=== PATIENT | male | born 1970 | race Hispanic/Latino ===

== ENCOUNTER 2016-08-24 03:57 | Emergency (ER) | payer BC ==
[2016-08-24 07:31] LABS: HEMATOCRIT 44.9 % (42.0-52.0); MEAN CELL VOLUME 91.4 fL (80.0-105.0); MEAN CORPUSCULAR HGB CONC 33.9 g/dl (31.0-37.0); MEAN PLATELET VOLUME 10.3 fl (7.0-11.0); RED CELL DISTRIBUTION WIDTH 13.3 % (11.5-14.5)
[2016-08-24 07:57] LABS: ALB/GLOB RATIO 1.3 (1.1-1.8); ALKALINE PHOSPHATASE 41 U/L (38-133); ALT/SGPT 37 U/L (7-56); AST/SGOT 27 U/L (15-59); BILIRUBIN,TOTAL 0.3 mg/dL (0.2-1.3); BLOOD UREA NITROGEN 8 mg/dL (7-21); CALCIUM 8.9 mg/dL (8.4-10.5); CARBON DIOXIDE 24 mmol/L (21-33); CHLORIDE 104 mmol/L (95-110); GFR AFRICAN-AMERICAN > 60; GLUCOSE,RANDOM 128 mg/dL (70-110); POTASSIUM 4.2 mmol/L (3.6-5.0); SODIUM 140 mmol/L (132-148); TOTAL PROTEIN 6.7 g/dL (5.8-8.3)
[2016-08-24 08:01] LABS: PH,URINE 6.5 (4.7-8.0); URINE BILIRUBIN NEGATIVE (NEGATIVE); URINE BLOOD NEGATIVE (NEGATIVE); URINE GLUCOSE (UA) NEGATIVE (NEGATIVE); URINE KETONE NEGATIVE (NEGATIVE); URINE LEUKOCYTE ESTERASE NEGATIVE Leu/uL (NEGATIVE); URINE PROTEIN NEGATIVE mg/dL (<30 mg/dL); URINE UROBILINOGEN 0.2 E.U./dL (<1 E.U./dL)
[2016-08-24 08:03] LABS: URINE APPEARANCE CLEAR (CLEAR); URINE COLOR YELLOW (YELLOW)
[2016-08-24 08:15] VITALS: BMI 31.6
--- NOTE | 2016-08-24 09:30 | RAD ---
HISTORY: Not provided COMPARISON: 11/26/2014 FINDINGS: LUNGS: No active pulmonary disease. PLEURA: No significant pleural effusion identified, no pneumothorax apparent. CARDIOVASCULAR: Normal. OSSEOUS STRUCTURES: No significant abnormalities. VISUALIZED UPPER ABDOMEN: Normal. OTHER FINDINGS: None. IMPRESSION: No active disease.
--- NOTE | 2016-08-24 11:16 | CARD ---
APPROVED REPORT EKG Measurement Heart [id number] SC [id number] <Conclusion> Normal sinus rhythm Normal ECG
[2016-08-24 20:32] VITALS: RESP 18
[2016-08-24 23:32] VITALS: BP 143/97; PULSE 89; O2SAT 100
[2016-08-24 23:33] VITALS: TEMP 98.4
== END 2016-08-25 | disposition short-term general hospital (02) ==
LOC: ED 03:57
DX: Z00.8 Encounter for other general examination (principal)
CPT/HCPCS: 71010; 80053; 81003; 85027; 87086; 90791; 93005; 99284; G0480